=== PATIENT | male | born 1965 | race Caucasian/White ===

== ENCOUNTER 2019-10-20 18:34 | Emergency (ER) | payer BC ==
[~2019-10-20] VITALS: Ht 182.9 cm; Wt 93.2 kg
[2019-10-20] MEDS ORDERED: ketorolac tromethamine 15mg/ml inj. IM ONE (20:05)
[2019-10-20] MEDS ORDERED: cyclobenzaprine 10mg tablet PO ONE (20:05)
[2019-10-20] MEDS ORDERED: HYDROcodone/acetaminophen 10/325mg tab PO ONE (20:05)
[2019-10-20 20:23] LABS: CLARITY,URINE CLEAR (Clear); COLOR,URINE YELLOW (Yellow); GLUCOSE, URINE NEGATIVE (Neg); KETONES,URINE TRACE mg/dl (Neg); LEUKOCYTE ESTERASE ,URINE TRACE (Neg); NITRITES, URINE NEGATIVE (Neg); OCCULT BLOOD,URINE NEGATIVE (Neg); PH,URINE 5.5 (4.8-8.0); PROTEIN,URINE NEGATIVE (Neg); UA COLLECTION TYPE CLN CATCH MIDSTREAM; UROBILINOGEN,URINE 0.2 E.U/dL (0.2-1.0)
[2019-10-20 20:30] LABS: BACTERIA,URINE FEW /HPF (Neg); RBC,URINE NONE SEEN /HPF (0-2); SQUAMOUS EPITHELIAL CELL,UR FEW /LPF (FEW); WBC,URINE 0-4 /HPF (0-4)
[2019-10-20] MEDS ORDERED: HYDR-4353 PO (21:13)
[2019-10-20] MEDS ORDERED: CYCL-1 PO (21:13)
[2019-10-20 21:30] VITALS: BP 119/89
== END 2019-10-20 21:31 | disposition home or self-care (01) ==
LOC: ER 18:35
DX: M54.5 Low back pain (principal); Z72.89 Other problems related to lifestyle; Z79.899 Other long term (current) drug therapy; W18.39XA Other fall on same level, initial encounter; Y93.89 Activity, other specified; Y99.8 Other external cause status
CPT/HCPCS: 72100; 81001; 87088; 96372; 99284; J1885; 87077; 99283